=== PATIENT | male | born 1960 | race Caucasian/White ===

== ENCOUNTER → 2017-08-09 | Outpatient (CLI) | payer BC ==
--- NOTE | 2017-08-09 10:40 | Diagnostic Imaging Report ---
PROCEDURE: CT abdomen and pelvis without contrast. TECHNIQUE: Multiple contiguous axial images were obtained through the abdomen and pelvis without the use of intravenous contrast. INDICATION: Hematuria. There are no prior studies available for comparison. FINDINGS: There is no evidence for nephrolithiasis or urolithiasis and the kidneys do not appear to be obstructed. There is a well-circumscribed 1.7 x 1.8 CM exophytic low density lesion along the posterior aspect of the left kidney. I suspect that this is a cyst. It may prove worthwhile to confirm this by ultrasound. The urinary bladder is only partially filled and consequently not well evaluated. There is no obvious bladder abnormality evident. The prostate gland is enlarged measuring 5.5 cm in maximum transverse diameter. The appendix was visualized and is not abnormally thickened. There are numerous diverticula involving the sigmoid and descending colon but there is no sign of acute diverticulitis. The liver, adrenals, gallbladder, pancreas, aorta and inferior vena cava are unremarkable for an acute abnormality. The stomach is partially filled with fluid and consequently difficult to assess. The left hemidiaphragm is elevated and the spleen is not visualized in its entirety. The spleen where visualized is unremarkable. The bone windows show no sign of a fracture or an acute abnormality. There is anterior wedging of T11. This is felt to be long-standing in nature. IMPRESSION: 1. There is no evidence for nephrolithiasis or urolithiasis and the kidneys do not appear to be obstructed. There is no acute abnormality of the abdomen or pelvis noted otherwise. 2. The rounded 1.7 x 1.8 cm area of low density along the left kidney is most likely related to a cyst. Ultrasound would be recommended to confirm this. 3. There is no obvious bladder abnormality. 4. The prostate gland is enlarged. 5. There is diverticulosis of sigmoid and descending colon without evidence of acute diverticulitis. Dictated by: Dictated on workstation # [id number]
== END ==
LOC: RAD 09:26
PROVIDERS: ATTEND Urology
DX: K57.30 Diverticulosis of large intestine without perforation or abscess without bleeding (principal)
CPT/HCPCS: 74176

== ENCOUNTER → 2017-09-13 | Outpatient (CLI) | payer BC | LOC: LAB 11:01 | PROVIDERS: ATTEND Dentist General Practice | DX: Z16.24 Resistance to multiple antibiotics (principal) | CPT/HCPCS: 87070; 87205 ==

== ENCOUNTER → 2018-03-27 | Outpatient (CLI) | payer BC ==
--- NOTE | 2018-03-27 14:01 | Diagnostic Imaging Report ---
PROCEDURE: CT chest without contrast. TECHNIQUE: Multiple contiguous axial images were obtained through the chest without the use of intravenous contrast. INDICATION: Dyspnea. COMPARISON: CT abdomen and pelvis of 08/09/2017. FINDINGS: Lungs and airway: No endoluminal nodule in the trachea. No pulmonary mass or nodule. Subsegmental compressive atelectasis in the left lower lobe due to asymmetric elevation of the left hemidiaphragm. Pleura: No pleural effusion or pneumothorax. Heart and mediastinum: The visualized aspects of the thyroid are normal. No supraclavicular or axillary lymphadenopathy. No mediastinal, hilar, or juxtaphrenic lymph adenopathy. The heart is borderline enlarged. Normal-caliber thoracic aorta. Upper abdomen: No concerning abnormality in the upper abdomen by noncontrast imaging. Musculoskeletal: No concerning focal osseous lesions. IMPRESSION: 1. No acute cardiopulmonary process. 2. Asymmetric elevation of the left hemidiaphragm with associated subsegmental atelectasis in the left lung base. Dictated by: Dictated on workstation # [id number]
== END ==
LOC: RAD 12:15
PROVIDERS: ATTEND Internal Medicine Cardiovascular Disease
DX: J98.6 Disorders of diaphragm (principal); J98.11 Atelectasis; I08.3 Combined rheumatic disorders of mitral, aortic and tricuspid valves; I10 Essential (primary) hypertension
CPT/HCPCS: 71250

== ENCOUNTER → 2018-03-28 | Outpatient (CLI) | payer BC ==
[~2018-03-28] MED LIST: CATHETER FLUSH 10 ML SYR IV PRN; REGADENOSON 0.4 MG/5 ML SYR (LEXISCAN) IV ONE
[2018-03-28 13:16] VITALS: BP 161/90
--- NOTE | 2018-03-28 22:24 | STRESS TEST ---
DATE OF SERVICE: 03/28/2018 LEXISCAN MYOVIEW STRESS TEST REPORT REFERRING PHYSICIAN: Dr. Prajapati. Baseline heart rate is 55. Baseline blood pressure 163/88. Baseline EKG is sinus rhythm with no ischemic changes. In summary, the patient was injected with 9.75 mCi of technetium-99 Myoview and the resting images were obtained. Then, the patient received 0.4 mg of Lexiscan followed by 29.5 mCi of technetium-99 Myoview. Throughout the test, there were no EKG changes. The resting and stressed images were reviewed and compared in the short axis, horizontal long axis, and vertical long axis views. Review of the images showed diaphragmatic attenuation with decreased uptake involving the mid to apical inferolateral wall, which is fixed with no significant ischemia. SSS is 5, SDS 1, TID value 0.92. On the gated images, the left ventricle appeared to be normal size with normal contractility. Calculated ejection fraction 54%. CONCLUSION: 1. The patient tolerated Lexiscan well. 2. Diaphragmatic attenuation with typical male pattern and fixed defect at the mid to apical inferolateral wall with no significant ischemia. 3. Normal left ventricular size with normal contractility. Calculated ejection fraction 54%. Job ID: [id number] DocumentID: [id number] Dictated Date: 03/28/2018 19:06:48 Sap Bw Architect Date: 03/28/2018 22:23:38 Dictated By: SUKHJINDER MORRIS MD
== END ==
LOC: CARD 10:44
PROVIDERS: ATTEND Internal Medicine Cardiovascular Disease
DX: R06.09 Other forms of dyspnea (principal); I11.9 Hypertensive heart disease without heart failure; I08.3 Combined rheumatic disorders of mitral, aortic and tricuspid valves
CPT/HCPCS: 78452; 93017